=== PATIENT | male | born 1945 | race Caucasian/White ===

== ENCOUNTER 2023-06-02 13:00 | Observation (INO) | payer MEDICARE ==
[~2023-06-02] VITALS: Ht 190.5 cm; Wt 104.9 kg
[2023-06-02 10:43] LABS: BASOPHILS # (AUTO) 0.04 K/uL (0.00-0.20); BASOPHILS % (AUTO) 0.5 % (0.0-5.0); EOSINOPHILS # (AUTO) 0.01 K/uL (0.00-0.70); EOSINOPHILS % (AUTO) 0.1 % (0.0-8.0); HEMATOCRIT 46.4 % (42-54); IMMATURE GRANULOCYTE ABSOLUTE 0.04 K/uL (0-1); LYMPHOCYTES # (AUTO) 0.9 K/uL (1.0-4.8); LYMPHOCYTES % (AUTO) 12.3 % (21.0-51.0); MEAN CORPUSCULAR HEMOGLOBIN 30.2 pg (27.0-33.0); MEAN CORPUSCULAR HGB CONC 32.3 g/dL (32.0-36.0); MEAN CORPUSCULAR VOLUME 93.4 fL (79-99); MONOCYTES # (AUTO) 0.5 K/uL (0.1-1.0); MONOCYTES % (AUTO) 6.6 % (3.0-13.0); NEUTROPHILS # (AUTO) 6.1 K/uL (1.8-7.7); PLATELET COUNT (AUTO) 249 K/uL (130-400); RED BLOOD CELL COUNT(AUTO) 4.97 MIL/uL (4.50-6.20); RED CELL DISTRIBUTION WIDTH 13.2 % (11.0-15.5); WHITE BLOOD COUNT (AUTO) 7.7 K/uL (4.8-10.8)
[2023-06-02 10:59] LABS: CREATININE 1.2 mg/dL (0.5-1.5); POTASSIUM 4.2 mmol/L (3.5-5.1)
[2023-06-03 09:58] VITALS: BP 139/65; PULSE 66; RESP 16
[2023-06-03] MEDS ORDERED: TIZA-194 PO (10:27)
[2023-06-03] MEDS ORDERED: CHLO25TA3 PO (10:27)
[2023-06-03] MEDS ORDERED: AMLO-257 PO (10:27)
[2023-06-03] MEDS ORDERED: PREG50CA63 PO ×2 (10:27)
[2023-06-03] MEDS ORDERED: ATOR40TA71 PO (10:27)
[2023-06-03] MEDS ORDERED: EMPA25TA PO (10:27)
[2023-06-03] MEDS ORDERED: METF-446 PO (10:27)
[2023-06-03] MEDS ORDERED: TYLENOL PO (10:27)
[2023-06-03] MEDS ORDERED: INSU300I SQ (10:27)
[2023-06-03] MEDS ORDERED: LOSA100T59 PO (10:27)
[2023-06-04] VITALS (26 sets, daily range): BP systolic 101–149; BP diastolic 39–81; PULSE 63–84; RESP 13–25; O2SAT 99
[2023-06-04] MEDS ORDERED: 0.9%NACL 1000ML 1,000 ML IV ONE (06:13)
[2023-06-04] MEDS ORDERED: CEFAZOLIN SODIUM 2 GM VIAL ONE (06:13)
[2023-06-04] MEDS ORDERED: PROPOFOL 10 MG/ML 20ML VIAL IV ONE ×2 (06:49→09:12)
[2023-06-04] MEDS ORDERED: LIDOCAINE PF 100MG/5ML (2%) SYRINGE 5ML ONE (06:49)
[2023-06-04] MEDS ORDERED: CEFAZOLIN SODIUM 1 GM VIAL ONE ×2 (06:49→10:54)
[2023-06-04] MEDS ORDERED: MORPHINE PF 100MG/10ML AMP IV ONE (06:49)
[2023-06-04] MEDS ORDERED: DEXAMETHASONE SOD PHOSPHATE 10MG/ML 1ML VIAL ONE (06:49)
[2023-06-04] MEDS ORDERED: SUCCINYLCHOLINE CHLORIDE 20 MG/ML 10 ML VIAL ONE (06:49)
[2023-06-04] MEDS ORDERED: GLYCOPYRROLATE 1 MG/5 ML SYRINGE ONE (06:49)
[2023-06-04] MEDS ORDERED: NEOSTIGMINE 5MG/5ML SYR IV ONE (06:50)
[2023-06-04] MEDS ORDERED: THROMBIN-JMI 20000 UNIT KIT TP ONE (06:50)
[2023-06-04] MEDS ORDERED: FENTANYL CITRATE PF 50 MCG/1 ML 2ML VIAL ONE ×2 (06:50→09:14)
[2023-06-04] MEDS ORDERED: ONDANSETRON 4MG INJ ONE ×2 (06:50→06:53)
[2023-06-04] MEDS ORDERED: MIDAZOLAM HCL 1 MG/ML 2ML VIAL ONE (06:50)
[2023-06-04] MEDS ORDERED: ROCURONIUM 10MG/1ML SYR 10 MG/ML ML ONE (06:50)
[2023-06-04] MEDS ORDERED: DEXAMETHASONE SOD PHOSPHATE 4 MG/ML 1ML VIAL ONE (06:54)
[2023-06-04] MEDS ORDERED: EPHEDRINE SULFATE 50 MG/ML AMPULE ONE ×2 (08:09→09:27)
[2023-06-04] MEDS ORDERED: ASPI-1443 PO (08:40)
[2023-06-04] MEDS ORDERED: ATROPINE 0.4MG VIAL IJ ONE (08:43)
[2023-06-04] MEDS ORDERED: LIDOCAINE 2%-EPI PF 30 ML+BUPIVACAINE/PF 0.25% 30ML /60ML SYR IJ SCH ×2 (09:00)
[2023-06-04] MEDS ORDERED: EPINEPHRINE PF 1MG (1:1,000) 1 MG/ML AMP ONE (09:33)
[2023-06-04] MEDS ORDERED: ARTIFICIAL TEARS 3.5 GM OINTMENT ONE (11:15)
[2023-06-04] MEDS ORDERED: HYDROCODONE/ACETAMINOPHEN 5/325 MG TAB PO PRN (11:30)
[2023-06-04] MEDS: DEXAMETHASONE SOD PHOSPHATE 4 MG/ML 1ML VIAL IVP SCH ×3 (11:30→23:40)
[2023-06-04] MEDS: CEFAZOLIN SODIUM 2 GM VIAL IVPB SCH ×2 (11:30→20:36)
[2023-06-04] MEDS ORDERED: MORPHINE 2 MG SYG IVP PRN (11:30)
[2023-06-04] MEDS ORDERED: PROMETHAZINE HCL 25 MG/ML 1ML AMPULE IM PRN (11:30)
[2023-06-04] MEDS ORDERED: 0.9%NACL 10ML VIAL IVP PRN (11:30)
[2023-06-04] MEDS ORDERED: TYLENOL 650 MG PO SCH (14:00)
[2023-06-04] MEDS ORDERED: PREGABALIN PO SCH (14:00)
[2023-06-04] MEDS: PREGABALIN 25 MG CAP PO SCH ×2 (16:12→20:27)
[2023-06-04] MEDS: ACETAMINOPHEN 325 MG TAB PO SCH ×2 (16:13→20:27)
[2023-06-04] MEDS: LACTATED RINGERS 1000ML 1,000 ML IV SCH (16:13)
[2023-06-04] MEDS: METFORMIN HCL 500 MG TABLET PO SCH (17:16)
[2023-06-04] MEDS ORDERED: TIZANIDINE HCL 2 MG TABLET PO SCH (21:00)
[2023-06-04] MEDS ORDERED: METFORMIN HCL PO SCH (21:00)
[2023-06-04] MEDS ORDERED: INSULIN GLARGINE 100 UNITS/ML 10 ML VIAL SQ SCH (21:00)
[2023-06-05] VITALS: BP 109/51; PULSE 65; RESP 16
[2023-06-05] MEDS: LACTATED RINGERS 1000ML 1,000 ML IV SCH (00:50)
[2023-06-05] MEDS: CEFAZOLIN SODIUM 2 GM VIAL IVPB SCH (03:48)
[2023-06-05 04:00] VITALS: BP 115/55; PULSE 65; RESP 19
[2023-06-05] MEDS: DEXAMETHASONE SOD PHOSPHATE 4 MG/ML 1ML VIAL IVP SCH (05:03)
[2023-06-05 08:00] VITALS: BP 119/57; PULSE 77; RESP 17; O2SAT 99
[2023-06-05] MEDS: METFORMIN HCL 500 MG TABLET PO SCH (08:58)
[2023-06-05] MEDS: ACETAMINOPHEN 325 MG TAB PO SCH (08:59)
[2023-06-05] MEDS: PREGABALIN 25 MG CAP PO SCH (08:59)
[2023-06-05] MEDS ORDERED: LOSARTAN 100 MG TABLET PO SCH (09:00)
[2023-06-05] MEDS ORDERED: INSULIN GLARGINE HUM REC ANLOG 40 UNIT SQ SCH (09:00)
[2023-06-05] MEDS ORDERED: ASPIRIN 81 MG EC TAB PO SCH (09:00)
[2023-06-05] MEDS ORDERED: AMLODIPINE 5 MG TAB PO SCH (09:00)
[2023-06-05] MEDS ORDERED: ATORVASTATIN 40 MG TABLET PO SCH (09:00)
[2023-06-05] MEDS ORDERED: [UNRECOGNIZED DRUG - OTHER] SQ SCH (09:00)
[2023-06-05] MEDS ORDERED: CHLORTHALIDONE PO SCH (09:00)
[2023-06-05] MEDS ORDERED: EMPAGLIFLOZIN 25MG TABLET PO SCH (09:00)
== END 2023-06-05 10:30 | disposition home or self-care (01) ==
LOC: DAHIP 06-04 05:45 → 4BH 06-04 12:50 → EDSTATUS 06-04 13:00
PROVIDERS: ADMIT Neurological Surgery; ATTEND Neurological Surgery
DX: M48.061 Spinal stenosis, lumbar region without neurogenic claudication (principal); Z20.822 Contact with and (suspected) exposure to COVID-19; M51.26 Other intervertebral disc displacement, lumbar region; M46.06 Spinal enthesopathy, lumbar region; M19.90 Unspecified osteoarthritis, unspecified site; I10 Essential (primary) hypertension; E11.42 Type 2 diabetes mellitus with diabetic polyneuropathy; K60.3 Anal fistula; Z79.899 Other long term (current) drug therapy
CPT/HCPCS: 80048; 85025; 87426; 36415; 71045; 63047; 63048 ×3; 96376 ×2; 96365; 96375; 82948 ×4; 72020; 96366; A6260; J1100 ×5; J1815; G0378 ×22; A4510; A4663; J7120; A4344; J3010 ×2; J0690 ×5; J3490 ×3; J2710; J0330; J7030; J0461; J2001; J0171; J2250; J2704 ×2; J2274; J2405 ×2; A6219; A4649; A4215; A4223; A4222; A4221; A4600